=== PATIENT | female | born 1990 | race Hispanic/Latino ===

== ENCOUNTER 2018-08-04 21:05 | Emergency (ER) | payer OTHER ==
[2018-08-04 21:10] VITALS: RESP 16; TEMP 98
[2018-08-04] MEDS ORDERED: Sodium Chloride 0.9% 1,000 ML IV STA (21:15)
[2018-08-04 21:43] LABS: BASO % 0.4 % (0.0-2.0); EOS # 0.1 K/uL (0.0-0.7); EOS % 0.8 % (0.0-4.0); HEMOGLOBIN 13.4 g/dL (12.0-16.0); LYMPH # 2.7 K/uL (1.0-4.3); LYMPH % 27.3 % (20.0-40.0); MEAN CELL VOLUME 93.7 fl (81.0-99.0); MEAN CORPUSCULAR HEMOGLOBIN 31.1 pg (27.0-31.0); MEAN CORPUSCULAR HGB CONC 33.2 g/dL (33.0-37.0); MEAN PLATELET VOLUME 10.1 fl (7.2-11.7); MONO # 0.4 K/uL (0.0-0.8); MONO % 3.9 % (0.0-10.0); NEUT # 6.6 K/uL (1.8-7.0); NEUT % 67.6 % (50.0-75.0); NRBC % 0.1 % (0.0-0.0); RBC 4.31 Mil/uL (3.80-5.20); RED CELL DISTRIBUTION WIDTH 12.5 % (11.5-14.5); WHITE BLOOD COUNT 9.8 K/uL (4.8-10.8)
[2018-08-04 21:51] LABS: ALB/GLOB RATIO 1.4 (1.0-2.1); ALBUMIN 4.6 g/dL (3.5-5.0); ALT/SGPT 29 U/L (9-52); AST/SGOT 31 U/L (14-36); BLOOD UREA NITROGEN 11 mg/dl (7-17); CALCIUM 8.6 mg/dL (8.4-10.2); GFR NON-AFRICAN AMERICAN > 60
--- NOTE | 2018-08-04 22:22 | ED PDOC ---
HPI: Psych/Substance Abuse Time Seen by Provider: 08/04/18 21:15 Chief Complaint (Nursing): Alcohol Ingestion Chief Complaint (Provider): Alcohol Ingestion ED Caveat: Intoxicated History Per: Patient, EMS History/Exam Limitations: intoxication Onset/Duration Of Symptoms: Mins Current Symptoms Are (Timing): Still Present Additional Complaint(s): 28 y/o female presents to the ER for public intoxication. Patient was found unconscious, unresponsive, and sleeping. Patient is unable to provide history and was found actively vomiting. PMD: none provided Past Medical History Reviewed: Historical Data, Nursing Documentation, Vital Signs, Unable To Obtain Vital Signs: Last Vital Signs Temp 98.0 F 08/04/18 21:06 Pulse 84 08/04/18 21:06 Resp 16 08/04/18 21:06 BP 120/71 08/04/18 21:06 Pulse Ox 96 08/04/18 21:06 Primary Care Provider: FAMILY PROVIDER,NO - Family History Family History: States: Unknown Family Hx - Home Medications Home Medications: Ambulatory Orders Medication Instructions Recorded Naproxen 1 tab PO BID PRN #14 tab 10/11/15 oxyCODONE/Acetaminophen [Percocet 1 ea PO Q6 PRN #10 tab 10/11/15 5/325 mg Tab] - Allergies Allergies/Adverse Reactions: Allergies Allergy/AdvReac Type Severity Reaction Status Date / Time No Known Allergies Allergy Verified 08/04/18 21:06 Review of Systems Review Of Systems: ROS cannot be obtained secondary to pt's inabilty to answer questions. (unable to obtain due to intoxication) Physical Exam - Reviewed Nursing Documentation Reviewed: Yes Vital Signs Reviewed: Yes - Physical Exam Appears: Positive for: No Acute Distress Head Exam: Positive for: NORMOCEPHALIC Skin: Positive for: Normal Color, Warm, Dry Eye Exam: Positive for: Normal appearance Neck: Positive for: Normal, Painless ROM Cardiovascular/Chest: Positive for: Regular Rate, Rhythm Respiratory: Positive for: Normal Breath Sounds. Negative for: Wheezing, Respiratory Distress Gastrointestinal/Abdominal: Positive for: Normal Exam, Soft Extremity: Positive for: Normal ROM Neurological/Psych: Positive for: Awake, Alert, Normal Tone Comments: Slight abrasion to the bridge of the nose - Laboratory Results Result Diagrams: 08/04/18 21:35 08/04/18 21:35 Lab Results: Total Bilirubin 0.6 mg/dl (0.2-1.3) 08/04/18 21:35 AST 31 U/L (14-36) 08/04/18 21:35 ALT 29 U/L (9-52) 08/04/18 21:35 Alkaline Phosphatase 60 U/L (38-126) 08/04/18 21:35 Total Protein 8.0 G/DL (6.3-8.2) 08/04/18 21:35 Albumin 4.6 g/dL (3.5-5.0) 08/04/18 21:35 Globulin 3.4 gm/dL (2.2-3.9) 08/04/18 21:35 Albumin/Globulin Ratio 1.4 (1.0-2.1) 08/04/18 21:35 - ECG O2 Sat by Pulse Oximetry: 96 (RA) Pulse Ox Interpretation: Normal Medical Decision Making Medical Decision Making: Initial Impression: Intoxication; possible facial head injury Initial Plan: --CT Head --CT Maxillofacial --Alcohol serum stat --CMP --Urine --ED urine dipstick --CBC --Sodium chloride 1000mL IV --Zofran 4mg IV 22:34 Upon reevaluation, patient is now awake, alert, and oriented x3. Patient is now reporting that she fell out of her [employer] vehicle causing her to hit her face. Friends are at her bedside stating patient had no LOC. Patient is requesting to be discharged and has no complaints at this time. There is no evidence of head injury other than the nasal abrasion. Patient declined CT and is stable for discharge with diagnosis of alcohol intoxication. Scribe Attestation: Documented by Dino Chamberlain acting as a scribe for Darien Rojas MD. Provider Scribe Attestation: All medical record entries made by the Scribe were at my direction and personally dictated by me. I have reviewed the chart and agree that the record accurately reflects my personal performance of the history, physical exam, medical decision making, and the department course for this patient. I have also personally directed, reviewed, and agree with the discharge instructions and disposition. Disposition - Clinical Impression Clinical Impression: Alcohol intoxication - Disposition Disposition: Routine/Home Disposition Time: 22:30 Condition: STABLE Instructions: Alcohol Use - When Is Drinking a Problem? Forms: [employer] ([place])
[2018-08-04 23:00] VITALS: BP 124/75; PULSE 82
[2018-08-06 00:54] VITALS: O2SAT 96
== END 2018-08-04 22:59 | disposition home or self-care (01) ==
LOC: H.ER 21:05
DX: F10.129 Alcohol abuse with intoxication, unspecified (principal); S00.31XA Abrasion of nose, initial encounter; W19.XXXA Unspecified fall, initial encounter; Y92.480 Sidewalk as the place of occurrence of the external cause; R11.10 Vomiting, unspecified
CPT/HCPCS: 80053; 80320; 85025; 99284; J2405; J7030